=== PATIENT | female | born 1995 | race African-American/Black ===

== ENCOUNTER 2017-09-06 12:46 | Emergency (ER) | payer MEDICAID ==
[~2017-09-06] VITALS: Ht 157.5 cm; Wt 64.0 kg
[2017-09-06] MEDS ORDERED: ACETAMINOPHEN 325MG TABLET PO ONE (14:00)
[2017-09-06 17:15] VITALS: BP 155/66
== END 2017-09-06 17:19 | disposition home or self-care (01) ==
LOC: ER 13:27
DX: M75.51 Bursitis of right shoulder (principal)
CPT/HCPCS: 73030; 99284

== ENCOUNTER 2019-01-12 10:57 | Emergency (ER) | payer SELFPAY ==
[~2019-01-12] VITALS: Ht 162.6 cm; Wt 72.0 kg
[2019-01-12 12:40] LABS: BASOPHILS % 0.4 % (0.0-2.0); HEMATOCRIT. 35.6 % (36.0-48.0); HEMOGLOBIN. 11.7 g/dL (12.0-16.0); LYMPHOCYTES % 15.5 % (20.0-50.0); MEAN CORPUSCULAR HEMOGLOBIN 25.1 pg (28.0-32.0); MEAN CORPUSCULAR VOLUME 76.5 fL (81.0-99.0); MONOCYTES % 5.8 % (2.0-8.0); NEUTROPHILS % 77.3 % (40.0-76.0); PLATELET 339 x1000/uL (130-400); RED BLOOD CELL COUNT 4.66 mill/uL (4.2-5.4); RED CELL DISTRIBUTION WIDTH 16.6 % (11.6-14.6)
[2019-01-12 12:44] LABS: CHLORIDE 103 mEq/L (98-107)
[2019-01-12 12:48] LABS: CLARITY URINE CLEAR (CLEAR); COLOR URINE DARK YELLOW (YELLOW); KETONES URINE 1+ (NEGATIVE); LEUKOCYTE ESTERASE URINE NEGATIVE (NEGATIVE); NITRITE URINE NEGATIVE (NEGATIVE); OCCULT BLOOD URINE NEGATIVE (NEGATIVE); PH URINE 5.5 (4.5-8.0); PROTEIN URINE TRACE (NEGATIVE); SPECIFIC GRAVITY URINE 1.026 (1.005-1.030); UROBILINOGEN URINE 0.2 E.U./dL (0.2-1.0)
[2019-01-12 13:14] LABS: B-HCG QUANTITATIVE 26514 mIU/mL (<3)
[2019-01-12 14:29] VITALS: BP 143/97
== END 2019-01-12 14:32 | disposition home or self-care (01) ==
LOC: ER 10:57
DX: O02.1 Missed abortion (principal); D25.9 Leiomyoma of uterus, unspecified
CPT/HCPCS: 36415; 76801; 81025; 84702; 99284